=== PATIENT | female | born 2000 | race African-American/Black ===

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

== ENCOUNTER 2020-03-06 15:54 | Outpatient (CLI) | payer OTHER | END 2020-03-06 22:31 | disposition home or self-care (01) | LOC: LABW 15:54 | DX: R30.0 Dysuria (principal); R31.9 Hematuria, unspecified; R35.0 Frequency of micturition; R82.998 Other abnormal findings in urine | CPT/HCPCS: 87088 ==

== ENCOUNTER 2020-03-29 07:59 | Outpatient (CLI) | payer OTHER | END 2020-03-29 21:58 | disposition home or self-care (01) | LOC: LAB 07:59 | DX: Z11.3 Encounter for screening for infections with a predominantly sexual mode of transmission (principal); R30.0 Dysuria | CPT/HCPCS: 81000; 87077; 87086; 87088; 87186; 87490; 87590 ==

== ENCOUNTER 2020-10-02 11:36 | Outpatient (CLI) | payer OTHER | END 2020-10-02 23:14 | disposition home or self-care (01) | LOC: LAB 11:36 | PROVIDERS: ATTEND Nurse Practitioner Family | DX: R30.0 Dysuria (principal); Z72.51 High risk heterosexual behavior; Z11.3 Encounter for screening for infections with a predominantly sexual mode of transmission | CPT/HCPCS: 81000; 87077; 87086; 87088; 87186; 87490; 87590 ==

== ENCOUNTER 2020-10-31 15:38 | Outpatient (CLI) | payer OTHER | END 2020-10-31 21:37 | disposition home or self-care (01) | LOC: RAD 15:38 | PROVIDERS: ATTEND Nurse Practitioner Family | DX: R35.0 Frequency of micturition (principal); R19.8 Other specified symptoms and signs involving the digestive system and abdomen ==

== ENCOUNTER 2020-12-07 18:24 | Outpatient (CLI) | payer OTHER | END 2020-12-07 20:33 | disposition home or self-care (01) | LOC: LAB 18:24 | PROVIDERS: ATTEND Physician Assistant | DX: R30.0 Dysuria (principal); N39.0 Urinary tract infection, site not specified | CPT/HCPCS: 87088 ==

== ENCOUNTER 2020-12-25 17:20 | Outpatient (CLI) | payer OTHER | END 2020-12-25 21:05 | disposition home or self-care (01) | LOC: LAB 17:20 | PROVIDERS: ATTEND Nurse Practitioner Family | DX: N89.8 Other specified noninflammatory disorders of vagina (principal); R10.30 Lower abdominal pain, unspecified | CPT/HCPCS: 81000; 87210 ==

== ENCOUNTER 2021-01-19 14:34 | Outpatient (CLI) | payer OTHER | END 2021-01-19 16:00 | disposition home or self-care (01) | LOC: LABW 14:34 | PROVIDERS: ATTEND Nurse Practitioner Family | DX: N89.8 Other specified noninflammatory disorders of vagina (principal); Z72.51 High risk heterosexual behavior | CPT/HCPCS: 87210; 87490; 87590 ==

== ENCOUNTER 2022-01-18 11:34 | Outpatient (CLI) | payer OTHER | END 2022-01-18 21:11 | disposition home or self-care (01) | LOC: LABW 11:34 | PROVIDERS: ATTEND Nurse Practitioner Family | DX: J02.8 Acute pharyngitis due to other specified organisms (principal) | CPT/HCPCS: 87081 ==